=== PATIENT | male | born 1985 | race Caucasian/White ===

== ENCOUNTER → 2020-06-29 | Outpatient (CLI) | payer OTHER | LOC: HEART 5 15:30 | DX: R06.02 Shortness of breath (principal); R00.2 Palpitations ==

== ENCOUNTER → 2020-07-26 | Outpatient (CLI) | payer OTHER | LOC: HEART 5 07:55 | DX: R06.02 Shortness of breath (principal); I34.0 Nonrheumatic mitral (valve) insufficiency; I07.1 Rheumatic tricuspid insufficiency | CPT/HCPCS: 93306 ==

== ENCOUNTER → 2020-12-13 | Outpatient (CLI) | payer OTHER | LOC: EXRD 08:48 | DX: R10.11 Right upper quadrant pain (principal); K76.0 Fatty (change of) liver, not elsewhere classified | CPT/HCPCS: 76705 ==

== ENCOUNTER → 2021-07-16 | Outpatient (CLI) | payer OTHER | LOC: HEART 5 07-12 13:30 | DX: R00.2 Palpitations (principal) ==

== ENCOUNTER → 2021-10-05 | Outpatient (CLI) | payer OTHER | LOC: LAB 09:29 | DX: Z20.822 Contact with and (suspected) exposure to COVID-19 (principal) | CPT/HCPCS: U0003 ==